=== PATIENT | female | born 1965 | race Caucasian/White ===

== ENCOUNTER 2020-04-05 16:38 | Emergency (ER) | payer MEDICARE, MEDICAID ==
[~2020-04-05] VITALS: Ht 170.2 cm; Wt 162.5 kg
[2020-04-05 17:37] LABS: BASO % 0.4 % (0.0-2.0); EOS # 0.1 (0.0-0.7); EOS % 1.4 % (0-4.0); GRAN # 2.9 (1.4-6.5); GRAN % 59.2 % (42.2-75.2); HEMATOCRIT 38.9 % (37.0-47.0); LYMPH # 1.5 (1.2-3.4); LYMPH % 30.9 % (20.0-51.0); MEAN CELL VOLUME 84 fl (80.0-100.0); MEAN CORPUSCULAR HEMOGLOBIN 26 pg (27.0-31.0); MEAN CORPUSCULAR HGB CONC 31 g/dl (33.0-37.0); MEAN PLATELET VOLUME 10.4 fl (7.4-10.4); MONO # 0.4 (0.1-0.6); MONO % 7.7 % (1.7-9.3); PLATELET COUNT 183 K/mm3 (130-400); RED BLOOD COUNT 4.65 M/mm3 (4.10-5.30); REDCELL DISTRIBUTION WIDTH-CV 16.4 % (11.5-14.5)
[2020-04-05 17:50] LABS: ALBUMIN 4.3 gm/dL (3.5-5.0); BILIRUBIN,TOTAL 0.7 mg/dL (0.0-1.0); CREATININE, serum 0.74 (0.52-1.25); TOTAL PROTEIN 7.5 gm/dL (6.4-8.2)
[2020-04-05 18:47] VITALS: BP 132/64; PULSE 84; TEMP 97.8
== END 2020-04-05 18:48 | disposition home or self-care (01) ==
LOC: COL.ER 16:38
PROVIDERS: Family Medicine
DX: S86.912A Strain of unspecified muscle(s) and tendon(s) at lower leg level, left leg, initial encounter (principal); M17.12 Unilateral primary osteoarthritis, left knee; E66.9 Obesity, unspecified; Z88.0 Allergy status to penicillin; Z88.2 Allergy status to sulfonamides; Z88.6 Allergy status to analgesic agent; Z86.711 Personal history of pulmonary embolism; Z68.43 Body mass index [BMI] 50.0-59.9, adult; X58.XXXA Exposure to other specified factors, initial encounter

== ENCOUNTER 2020-05-25 21:46 | Emergency (ER) | payer MEDICARE, MEDICAID ==
[~2020-05-25] VITALS: Ht 170.2 cm; Wt 155.5 kg
[2020-05-25 22:49] LABS: BASO % 0.4 % (0.0-2.0); EOS # 0.1 (0.0-0.7); EOS % 1.3 % (0-4.0); GRAN # 3.4 (1.4-6.5); GRAN % 63.3 % (42.2-75.2); HEMATOCRIT 39.2 % (37.0-47.0); HEMOGLOBIN 11.7 g/dl (12.5-16.0); LYMPH # 1.4 (1.2-3.4); LYMPH % 25.4 % (20.0-51.0); MEAN CELL VOLUME 84 fl (80.0-100.0); MEAN CORPUSCULAR HEMOGLOBIN 25 pg (27.0-31.0); MEAN CORPUSCULAR HGB CONC 30 g/dl (33.0-37.0); MEAN PLATELET VOLUME 10.5 fl (7.4-10.4); MONO # 0.5 (0.1-0.6); MONO % 9.2 % (1.7-9.3); PLATELET COUNT 209 K/mm3 (130-400); RED BLOOD COUNT 4.69 M/mm3 (4.10-5.30); REDCELL DISTRIBUTION WIDTH-CV 16.6 % (11.5-14.5)
[2020-05-25 22:57] LABS: COLLECTION METHOD CLEAN CATCH
[2020-05-25 23:00] LABS: ALANINE AMINOTRANSFERASE 19 U/L (4-34); ALBUMIN 3.9 gm/dL (3.5-5.0); ALKALINE PHOSPHATASE 73 U/L (50-136); ANION GAP 9 mmol/L (7-16); AST,SGOT 22 U/L (15-37); BILIRUBIN,TOTAL 0.2 mg/dL (0.0-1.0); BLOOD UREA NITROGEN 14 mg/dL (7-17); CALCIUM 8.7 mg/dL (8.4-10.2); CARBON DIOXIDE 23 mmol/L (22-30); CHLORIDE 106 mmol/L (98-107); CREATININE, serum 0.64 (0.52-1.25); GLUCOSE 105 mg/dL (74-106); POTASSIUM 3.9 mmol/L (3.4-5.0); SODIUM 138 mmol/L (137-145); TOTAL PROTEIN 7.3 gm/dL (6.4-8.2)
[2020-05-25 23:05] LABS: ACETAMINOPHEN < 10 ug/mL (10-30); ALCOHOL(ethanol),MEDICAL < 10 mg/dL; SALICYLATE < 1.0 mg/dL
[2020-05-25 23:06] LABS: MUCOUS Present /lpf; PH 5 (5-8); URINE APPEARANCE Hazy; URINE BACTERIA Occasional /hpf; URINE BILIRUBIN Negative (NEGATIVE); URINE BLOOD Negative (NEGATIVE); URINE COLOR Yellow; URINE GLUCOSE Negative (NEGATIVE); URINE KETONE Negative (NEGATIVE); URINE LEUKOCYTE ESTERASE 1+ (NEGATIVE); URINE NITRATE Positive (NEGATIVE); URINE PROTEIN(semi-quant) 1+ (NEGATIVE)
[2020-05-25 23:09] LABS: TRICYCLIC ANTIDEPRESS URINE POSITIVE
[2020-05-26 06:58] VITALS: BP 129/89
[2020-05-26] MEDS ORDERED: MACROBID 1100 MG/CAP PO (10:59)
--- NOTE | 2020-05-26 12:56 | NUR ---
SW called to ER to assist with patient. Nurse informed SW that patient was brought to the ER by daughter due to patient overdosing on medication. Nurse informed SW that patient's daughter Vilma [phone] did not want patient to return to her home due to the patient not being safe and needing continued assistance. Nurse provided that she called [facility] and [facility] sent safetly plan documentation which states that patient is to return to her "home" which is daughter's home for this safety plan. SW called daughter to confirm information and daughter stated that patient was not safe in her home around her children, and that she wants to ensure that her mother does not return to her home due to her mother needing to be safe and needing therapy. SW called [facility] to inform therapist Anastasia [phone] that daughter stated that patient could not return to her home at this time due to not being safe. SW spoke to patient with nurse and patient stated that she just wanted to go home to be with family and her cat. SW and nurse informed patient that daughter felt it was unsafe for her to go back to her home at this time. Patient stated that if she could not go back to her daughte's home "she had nothing to live for" Physician and [facility] staff informed of patient's comment. Daniele stated that she is unsafe to leave facility. [facility] therapist Anastasia spoke to patient. After call with therapist, patient spoke to daughter, patient informed daughter that she wanted to come home, but daugther stated that her mother needed assistance to be safe. [facility] staff therapist Anastasia stated that patient has the option of coming to the stabilization. Patient agreed to go to facilty. Nurse, [facility] therapist Anastasia, and Physician informed of plan. Therapist provided that [facility] transportation will pick patient up as soon as DC paper work is complete. SW informed nurse of [facility] transportation number [phone]. SW attempted to call daughter to inform her of plan, but daughter did not answer. Nothing further.
[2020-05-26 13:30] VITALS: PULSE 85; TEMP 97.6
== END 2020-05-26 13:30 | disposition home or self-care (01) ==
LOC: COL.ER 21:46
PROVIDERS: Nurse Practitioner Primary Care
DX: T42.4X2A Poisoning by benzodiazepines, intentional self-harm, initial encounter (principal); T43.012A Poisoning by tricyclic antidepressants, intentional self-harm, initial encounter; T43.222A Poisoning by selective serotonin reuptake inhibitors, intentional self-harm, initial encounter; F32.9 Major depressive disorder, single episode, unspecified; Z98.84 Bariatric surgery status; Z88.0 Allergy status to penicillin; Z88.2 Allergy status to sulfonamides; Z88.6 Allergy status to analgesic agent

== ENCOUNTER 2020-06-10 23:10 | Emergency (ER) | payer MEDICARE, MEDICAID ==
[~2020-06-10] VITALS: Ht 170.2 cm; Wt 155.5 kg
[~2020-06-10 23:10] MED LIST: MACROBID 1100 MG/CAP PO
[2020-06-10 23:15] VITALS: TEMP 98.2
[2020-06-10 23:35] LABS: BASO % 0.3 % (0.0-2.0); EOS # 0.1 (0.0-0.7); EOS % 1.2 % (0-4.0); GRAN # 5.1 (1.4-6.5); GRAN % 65.1 % (42.2-75.2); HEMATOCRIT 42.5 % (37.0-47.0); HEMOGLOBIN 12.3 g/dl (12.5-16.0); LYMPH # 2.1 (1.2-3.4); LYMPH % 27.1 % (20.0-51.0); MEAN CELL VOLUME 84 fl (80.0-100.0); MEAN CORPUSCULAR HEMOGLOBIN 24 pg (27.0-31.0); MEAN CORPUSCULAR HGB CONC 29 g/dl (33.0-37.0); MEAN PLATELET VOLUME 10.8 fl (7.4-10.4); MONO # 0.5 (0.1-0.6); MONO % 5.8 % (1.7-9.3); PLATELET COUNT 255 K/mm3 (130-400); RED BLOOD COUNT 5.05 M/mm3 (4.10-5.30); REDCELL DISTRIBUTION WIDTH-CV 16.8 % (11.5-14.5)
[2020-06-10 23:45] LABS: ALANINE AMINOTRANSFERASE 18 U/L (4-34); ALBUMIN 4.6 gm/dL (3.5-5.0); ALKALINE PHOSPHATASE 83 U/L (50-136); ANION GAP 10 mmol/L (7-16); AST,SGOT 27 U/L (15-37); BILIRUBIN,TOTAL 0.4 mg/dL (0.0-1.0); BLOOD UREA NITROGEN 10 mg/dL (7-17); CALCIUM 9.4 mg/dL (8.4-10.2); CARBON DIOXIDE 25 mmol/L (22-30); CHLORIDE 104 mmol/L (98-107); CREATININE, serum 0.68 (0.52-1.25); GLUCOSE 93 mg/dL (74-106); LIPASE 81 U/L (23-300); POTASSIUM 4.2 mmol/L (3.4-5.0); SODIUM 139 mmol/L (137-145); TOTAL PROTEIN 8.8 gm/dL (6.4-8.2)
[2020-06-10 23:55] LABS: PROTHROMBIN TIME 11.5 SECONDS (9.7-12.8)
[2020-06-10 23:58] LABS: PARTIAL THROMBOPLASTIN TIME 33.3 SECONDS (26.0-37.0)
[2020-06-11] LABS: D-DIMER < 200.00 ng/mLDDu (200-230); TROPONIN-I < 0.012 ng/mL (0.000-0.035)
[2020-06-11] MEDS ORDERED: BONINE25 MG PO (01:55)
[2020-06-11 01:57] VITALS: BP 131/67; PULSE 84
== END 2020-06-11 02:15 | disposition home or self-care (01) ==
LOC: COL.ER 23:10
PROVIDERS: Emergency Medicine
DX: R07.89 Other chest pain (principal); H81.392 Other peripheral vertigo, left ear; Z88.2 Allergy status to sulfonamides; Z88.0 Allergy status to penicillin; Z88.6 Allergy status to analgesic agent
CPT/HCPCS: J2060

== ENCOUNTER 2022-02-24 22:17 | Emergency (ER) | payer MEDICARE, MEDICAID ==
[~2022-02-24] VITALS: Ht 170.2 cm; Wt 140.1 kg
[~2022-02-24 22:17] MED LIST changes: +BONINE25 MG PO
[2022-02-24 22:24] VITALS: TEMP 98.3
[2022-02-24 23:06] LABS: BASO % 0.5 % (0.0-2.0); EOS # 0.1 K/mm3 (0.0-0.7); EOS % 0.8 % (0.0-4.0); GRAN # 4.3 K/mm3 (1.4-6.5); GRAN % 68.2 % (42.2-75.2); HEMATOCRIT 38.9 % (37.0-47.0); HEMOGLOBIN 11.5 g/dl (12.5-16.0); LYMPH # 1.4 K/mm3 (1.2-3.4); LYMPH % 21.8 % (20.0-51.0); MEAN CELL VOLUME 81 fl (80.0-100.0); MEAN CORPUSCULAR HEMOGLOBIN 24 pg (27-31); MEAN CORPUSCULAR HGB CONC 30 g/dl (33.0-37.0); MEAN PLATELET VOLUME 11.3 fl (7.4-10.4); MONO # 0.5 K/mm3 (0.1-0.6); MONO % 8.4 % (1.7-9.3); PLATELET COUNT 222 K/mm3 (130-400); RED BLOOD COUNT 4.78 M/mm3 (4.10-5.30); REDCELL DISTRIBUTION WIDTH-CV 18.1 % (11.5-14.5)
[2022-02-24 23:37] LABS: ALANINE AMINOTRANSFERASE 18 U/L (0-55); ALBUMIN 3.6 gm/dL (3.5-5.0); ALKALINE PHOSPHATASE 54 U/L (40-150); ANION GAP 12 mmol/L (7-16); AST,SGOT 16 U/L (5-34); BILIRUBIN,TOTAL 0.5 mg/dL (0.2-1.2); BLOOD UREA NITROGEN 7 mg/dL (10-20); CALCIUM 8.7 mg/dL (8.4-10.2); CARBON DIOXIDE 21 mmol/L (22-29); CHLORIDE 107 mmol/L (98-107); CREATININE, serum 0.79 mg/dL (0.57-1.11); GLUCOSE 104 mg/dL (70-99); POTASSIUM 3.7 mmol/L (3.5-4.5); SODIUM 140 mmol/L (136-145); TOTAL PROTEIN 6.7 gm/dL (6.2-8.1)
[2022-02-24 23:49] LABS: TROPONIN-I < 0.010 ng/mL (0.00-0.033)
[2022-02-25 00:08] VITALS: BP 124/87; PULSE 64
== END 2022-02-25 00:24 | disposition home or self-care (01) ==
LOC: COL.ER 22:17
PROVIDERS: Emergency Medicine
DX: R07.89 Other chest pain (principal); R06.02 Shortness of breath; Z28.310 Unvaccinated for COVID-19; Z20.822 Contact with and (suspected) exposure to COVID-19
CPT/HCPCS: J3010

== ENCOUNTER 2023-05-05 14:07 | Observation (INO) | payer MEDICARE, MEDICAID ==
[~2023-05-05] VITALS: Ht 170.2 cm; Wt 125.1 kg
[2023-05-05] MEDS ORDERED: Ondansetron 4 MG/2 ML VIAL IV PRN ×2 (14:45→18:45)
[2023-05-05] MEDS ORDERED: LORazepam 2 MG/ML 1 ML VIAL IV ONE (14:45)
[2023-05-05] MEDS ORDERED: Morphine 4 MG/ML VIAL IV PRN ×2 (14:45→18:45)
[2023-05-05 14:58] LABS: BASO % 0.3 % (0.0-2.0); EOS % 0.7 % (0.0-4.0); GRAN # 3.6 K/mm3 (1.4-6.5); GRAN % 61.9 % (42.2-75.2); HEMATOCRIT 37.9 % (37.0-47.0); HEMOGLOBIN 11.2 g/dl (12.5-16.0); LYMPH # 1.6 K/mm3 (1.2-3.4); LYMPH % 28.3 % (20.0-51.0); MEAN CELL VOLUME 81 fl (80.0-100.0); MEAN CORPUSCULAR HEMOGLOBIN 24 pg (27-31); MEAN CORPUSCULAR HGB CONC 30 g/dl (33.0-37.0); MONO # 0.5 K/mm3 (0.1-0.6); MONO % 8.5 % (1.7-9.3); PLATELET COUNT 235 K/mm3 (130-400); RED BLOOD COUNT 4.66 M/mm3 (4.10-5.30); REDCELL DISTRIBUTION WIDTH-CV 17.9 % (11.5-14.5)
[2023-05-05 15:15] LABS: ALANINE AMINOTRANSFERASE 11 U/L (0-55); ALBUMIN 3.9 gm/dL (3.5-5.0); ALKALINE PHOSPHATASE 58 U/L (40-150); ANION GAP 9 mmol/L (7-16); AST,SGOT 17 U/L (5-34); BILIRUBIN,TOTAL 0.5 mg/dL (0.2-1.2); BLOOD UREA NITROGEN 13 mg/dL (10-20); CALCIUM 9.5 mg/dL (8.4-10.2); CARBON DIOXIDE 22 mmol/L (22-29); CHLORIDE 109 mmol/L (98-107); CREATININE, serum 0.78 mg/dL (0.57-1.11); GLUCOSE 79 mg/dL (70-99); POTASSIUM 4.4 mmol/L (3.5-4.5); SODIUM 140 mmol/L (136-145); TOTAL PROTEIN 7.1 gm/dL (6.2-8.1)
[2023-05-05 15:33] LABS: TROPONIN-I < 0.010 ng/mL (0.00-0.033)
[2023-05-05] MEDS ORDERED: Mag/Al Hydrox/Simeth Susp 30 ML CUP PO ONE (18:00)
[2023-05-05] MEDS ORDERED: LEXAPRO20 MG PO (18:26)
[2023-05-05] MEDS ORDERED: DESYREL 100MG100 MG PO (18:26)
[2023-05-05] MEDS ORDERED: ATARAX 25MG25 MG/TAB PO (18:26)
[2023-05-05] MEDS ORDERED: VRAYLAR3 MG PO (18:26)
[2023-05-05] MEDS ORDERED: fentaNYL 50 MCG/ML 2 ML VIAL IV ONE (18:30)
[2023-05-05] MEDS ORDERED: Albuterol/Ipratropium 3 MG-0.5 MG/3 ML Neb Soln IH PRN (18:45)
[2023-05-05] MEDS ORDERED: Mag/Al Hydrox/Simeth Susp 30 ML CUP PO PRN (18:45)
[2023-05-05] MEDS ORDERED: Heparin 5,000 UNITS/ML 1 ML VIAL IV PRN (18:45)
[2023-05-05] MEDS ORDERED: Heparin 5,000 UNITS/ML 1 ML VIAL IV ONE (18:45)
[2023-05-05] MEDS ORDERED: Acetaminophen 325 MG TAB PO PRN (18:45)
[2023-05-05] MEDS ORDERED: NS 1,000 ML IV ONE (18:45)
[2023-05-05] MEDS ORDERED: Heparin/D5W 250 ML IV SCH (18:45)
[2023-05-05 19:55] LABS: PARTIAL THROMBOPLASTIN TIME 31.3 SECONDS (26.0-37.0)
--- NOTE | 2023-05-05 20:20 | NUR ---
FEMALE PATIENT ARRIVED TO ROOM #318 VIA STRETCHER FROM ER. PATIENT ASSISTED TO BED WITH STAND BY ASSIST. GAIT STEADY. TELEMETRY INTACT. HEPARIN INFUSING INTO RIGHT UPPER ARM WITH NO COMPLICATIONS NOTED. NS INFUSING INTO RIGHT WRIST VIA DIAL-A-PERLA. PATIENT AMBULATED TO BATHROOM AND VOIDED. PATIENT THEN AMBULATED TO BED. INITAL INTERVIEW AND ASSESSMENT COMPLETED AT THIS TIME. PATIENT TOELRATED WELL. PATIENT VERBALIZED UNDERSTANDIND OF BED CONTROLS AND CALL LIGHT. PATIENT C/O CHEST PAIN MID STERNAL. 6.5 ON SCALE OF 0 TO 10. PATIENT VERBALIZED THAT MEDICATION WOULD BE GIVEN. PATIENT DENIES ANY OTHER NEEDS. BED IN LOW POSITION WITH WHEELS LOCKED WITH RIALS UP X2 AND CALL LIGHT WITHIN REACH.
[2023-05-05 20:30] VITALS: BP 109/70; PULSE 60; TEMP 97.5
--- NOTE | 2023-05-05 20:59 | NUR ---
PATIENT SITTING UP IN BED WATCHING TV AND EATING SANDWICH TRAY WITH NO ACUTE DISTRESS NOTED. PATIENT ON ROOM AIR. NS INFUSING INTO RIGHT WRIST AND HEPARIN INFUSING INTO RIGHT UPPER ARM WITH NO COMPLICATIONS NOTED. TUBING CHANGED ON NS INFUSION. MEDICATION ADMINISTRATION COMPLETED AT THIS TIME. PATIENT TOELRATED WELL. ALL NEEDS MET. BED IN LOW POSITION WITH WHEELS LOCKED WITH RAILS UP X2 AND CALL LIGHT WITHIN REACH.
[2023-05-05] MEDS ORDERED: Pravastatin 20 MG TAB PO SCH (21:00)
[2023-05-05] MEDS ORDERED: Sennosides/Docusate 8.6-50 MG TAB PO SCH (21:00)
[2023-05-05 23:38] VITALS: BP 130/77; PULSE 65; TEMP 97.7
[2023-05-06] VITALS (17 sets, daily range): BP systolic 92–130; BP diastolic 62–77; PULSE 54–121; TEMP 97.5–100.4
[2023-05-06] MEDS ORDERED: DESYREL 100MG100 MG PO (00:24)
[2023-05-06] MEDS ORDERED: LEXAPRO20 MG PO (00:26)
[2023-05-06] MEDS ORDERED: Escitalopram 10 MG TAB PO SCH (02:30)
[2023-05-06] MEDS ORDERED: traZODone 100 MG TAB PO SCH (02:30)
--- NOTE | 2023-05-06 06:40 | NUR ---
PT RESTING IN BED. PT IS ON RA. PT IS SR ON TELE. PT IS AXOX3. PT HAS HEPARIN RUNNING. PT IS NPO AND AWAITING CARDIOLOGY CONSULT. PT HAS CALL LIGHT AND INSTURCTED TO CALL WITH ALL NEEDS.
[2023-05-06 07:50] LABS: CALCIUM 8.8 mg/dL (8.4-10.2); CREATININE, serum 0.67 mg/dL (0.57-1.11); POTASSIUM 4.3 mmol/L (3.5-4.5)
[2023-05-06] MEDS ORDERED: Patient's Own Medication Item PO SCH (09:00)
--- NOTE | 2023-05-06 09:53 | NUR ---
Initial visit; Patient thanked Personal Care Worker for looking in on her and offering God's blessings. Patient agreed to let her nurse know if she decides she would like Personal Care Worker to return and pray with her.
[2023-05-06] MEDS ORDERED: NS 1,000 ML IV SCH (10:30)
--- NOTE | 2023-05-06 11:12 | NUR ---
Clothes Drier Repairer met with patient at bedside. Patient alert and oriented x 4, verified demographic information. Patient lives with her daughter Vilma ([phone]) in [place], [place]. Patient reports seeing Dr. Vel Azevedo as her PCP She uses no DME and has no services at home. Patient reports being independent with ADLs and drives herself. Patient denies any discharge needs at this time. Patient did request to complete DPOA paperwork during this stay. Plan is to return home when medically stable. Discharge: Home
[2023-05-06] MEDS ORDERED: Regadenoson 0.08 MG/ML 5 ML SYRINGE IV SCH (11:37)
--- NOTE | 2023-05-06 13:07 | NUR ---
PT BACK FROM [facility]. SPOKE WITH SHA RODRIGUEZ WITH CARDIOLOGY. ORDER RECEIVED FOR DIET.
--- NOTE | 2023-05-06 14:08 | NUR ---
[employer] met with patient to complete DPOA document. Copy placed on patient's chart. Original and copies provided to patient.
--- NOTE | 2023-05-06 15:36 | NUR ---
LAB UNABLE TO DRAW XA. THIS RN ATTEMPTED WITH NO SUCCESS. SHA RODRIGUEZ NOTIFIED AND ASKED REGARDING [facility] SCAN RESULTS. HE STATES HE WILL LET KNOW.
--- NOTE | 2023-05-06 17:08 | NUR ---
1545-TERRITORY SALES MANAGER MEDICAL ATTEMPTED TO DRAW BLOOD FOR HEP XA, UNSUCCESSFUL. 1605-JEANINE NEUMANN FROM ER CAME UP TO DRAW LAB FOR XA. BLOOD SENT TO LAB.
--- NOTE | 2023-05-06 18:30 | NUR ---
[facility] SCAN RESULTS NEGATIVE. NOTIFIED. ORDERS TO DC HEPARIN GTT.
--- NOTE | 2023-05-06 18:40 | NUR ---
PATIENT RESTING IN BED WITH TV ON WITH NO ACUTE DISTRESS NOTED WITH NS INFUSING INTO RIGHT WRIST WITH NO COMPLICATIONS NOTED. INT TO RIGHT UPPER ARM INTACT WITH NO COMPLICATIONS NOTED. PATIENT ON ROOM AIR. TELEMETRY INTACT. PATIENT DENIES ANY NEEDS AT THIS TIME. PATIENT CARE ASSUMED FROM [facility]. BED IN LOW POSITION WITH WHEELS LOCKED WITH RAILS UP X3 AND CALL LIGHT WITHIN REACH.
[2023-05-06] MEDS ORDERED: PRAVACHOL 40MG40 MG PO (18:44)
[2023-05-06] MEDS ORDERED: ASPIRIN E.C. 8181 MG PO (18:45)
[2023-05-06] MEDS ORDERED: PLAVIX 75MG TAB75 MG PO (18:46)
[2023-05-06] MEDS ORDERED: LOPRESSOR 225 MG/TAB PO (18:47)
[2023-05-06] MEDS ORDERED: PROTONIX 40MG T40 MG PO (18:48)
--- NOTE | 2023-05-06 18:54 | NUR ---
DISCHARGE ORDERS RECIEVED.
--- NOTE | 2023-05-06 19:15 | NUR ---
PATIENT RESTING IN BED WATCHING TV WITH NO ACUTE DISTRESS NOTED. PATIENT ON ROOM AIR. NS INFUSING IN TO RIGHT WRIST WITH NO COMPLICATIONS NTOED. INT TO RIGHT UPPER ARM INTACT WITH NO COMPLICATIONS NOTED. PATIENT INFORMED OF DISCHARE. PATIENT CALLED DAUGHTER. TELEMETRY REMOVED AFTER ICU NOTIFIED. PATIENT REQUESTED IVS BE TAKEN OUT. INT TO RIGHT WRIST AND RIGHT UPPER ARM REMOVED WITH CATHETER INTACT AND PRESSURE DRESSING APPLIED. PATIENT GOT DRESSED. DISCHARGE PAPERWORK COMPLETED. PATIENT VERBALIZED UNDERSTANDING OF MEDICATION TO RETIREMENT SALES CONSULTANT AND START TAKING ALONG WITH NEED FOR FOLLOW UP APPOINTMENTS WITH PCP AND CARDIOLOGY. PATIENT AGREED TO CALL ONCE DAUGHTER AT HOSPITAL. PATIENT DENIES ANY OTHER NEEDS AT THIS TIME. BED IN LOW POSITION WITH WHEELS LOCKED WITH RAILS UP X2 AND CALL LIGHT WITHIN REACH.
--- NOTE | 2023-05-06 19:32 | NUR ---
PATIENT DAUGHTER PRESENT AND PATIENT AMBULATED OUT TO CAR IN STABLE CONDITION. PATIENT REFUSED WHEELCHAIR RIDE OUT TO CAR.
== END 2023-05-06 19:32 | disposition home or self-care (01) ==
LOC: COL.ER 14:07 → MEDICAL 18:33
PROVIDERS: Personal Emergency Response Attendant; Physician Assistant; ADMIT Internal Medicine
DX: R07.2 Precordial pain (principal); E66.01 Morbid (severe) obesity due to excess calories; F32.A Depression, unspecified; F20.9 Schizophrenia, unspecified; I08.1 Rheumatic disorders of both mitral and tricuspid valves; J90 Pleural effusion, not elsewhere classified; Z98.84 Bariatric surgery status; Z79.899 Other long term (current) drug therapy
CPT/HCPCS: A9500-JZ; G0378; J1644; J2060; J2270; J2405; J2785; J3010; J7030

== ENCOUNTER → 2023-05-13 | Outpatient (CLI) | payer MEDICARE, MEDICAID ==
[~2023-05-13] MED LIST changes: +ASPIRIN E.C. 8181 MG PO; +ATARAX 25MG25 MG/TAB PO; +DESYREL 100MG100 MG PO; +LEXAPRO20 MG PO; +LOPRESSOR 225 MG/TAB PO; +PLAVIX 75MG TAB75 MG PO; +PRAVACHOL 40MG40 MG PO; +PROTONIX 40MG T40 MG PO; +VRAYLAR3 MG PO
== END ==
LOC: MC.RAD 13:43
DX: Z12.31 Encounter for screening mammogram for malignant neoplasm of breast (principal)

== ENCOUNTER 2023-08-28 16:27 | Emergency (ER) | payer MEDICARE, MEDICAID ==
[~2023-08-28] VITALS: Ht 170.2 cm; Wt 116.8 kg
[2023-08-28 16:31] VITALS: TEMP 98
[2023-08-28] MEDS ORDERED: Pantoprazole 40 MG in NS 10 ML IV ONE (17:00)
[2023-08-28] MEDS ORDERED: Ondansetron 4 MG/2 ML VIAL IV ONE (17:00)
[2023-08-28] MEDS ORDERED: NS 1,000 ML IV ONE (17:00)
[2023-08-28 17:07] LABS: BASO % 0.3 % (0.0-2.0); EOS # 0.1 K/mm3 (0.0-0.7); EOS % 1.6 % (0.0-4.0); GRAN % 55.4 % (42.2-75.2); HEMOGLOBIN 10.4 g/dl (12.5-16.0); LYMPH # 1.2 K/mm3 (1.2-3.4); LYMPH % 33.3 % (20.0-51.0); MEAN CELL VOLUME 75 fl (80.0-100.0); MEAN CORPUSCULAR HEMOGLOBIN 22 pg (27-31); MEAN CORPUSCULAR HGB CONC 30 g/dl (33.0-37.0); MEAN PLATELET VOLUME 10.8 fl (7.4-10.4); MONO # 0.3 K/mm3 (0.1-0.6); MONO % 8.9 % (1.7-9.3); PLATELET COUNT 166 K/mm3 (130-400); RED BLOOD COUNT 4.64 M/mm3 (4.10-5.30); REDCELL DISTRIBUTION WIDTH-CV 19.7 % (11.5-14.5)
[2023-08-28 17:11] LABS: HEMATOCRIT 34.9 % (37.0-47.0)
[2023-08-28 17:22] LABS: ALBUMIN 3.7 g/dL (3.5-5.0); BILIRUBIN,TOTAL 0.6 mg/dL (0.2-1.2); C-REACTIVE PROTEIN 0.35 mg/dL (0.00-0.50); CALCIUM 9.6 mg/dL (8.4-10.2); CREATININE, serum 0.71 mg/dL (0.57-1.11); POTASSIUM 4.1 mEq/L (3.5-4.5); TOTAL PROTEIN 6.2 g/dl (6.2-8.1)
[2023-08-28] MEDS ORDERED: Iohexol 300 - 100 ML VIAL IV ONE (18:10)
[2023-08-28] MEDS ORDERED: NS 100 ML IV ONE (18:11)
[2023-08-28] MEDS ORDERED: PROTONIX 40MG T40 MG PO (19:08)
[2023-08-28 19:14] VITALS: BP 127/87; PULSE 60
== END 2023-08-28 19:36 | disposition home or self-care (01) ==
LOC: COL.ER 16:27
PROVIDERS: Emergency Medicine
DX: K92.0 Hematemesis (principal); E66.01 Morbid (severe) obesity due to excess calories; Z87.891 Personal history of nicotine dependence; Z79.02 Long term (current) use of antithrombotics/antiplatelets
CPT/HCPCS: J2405; J2470; J7030; Q9967

== ENCOUNTER 2023-09-16 17:01 | Emergency (ER) | payer MEDICARE, MEDICAID ==
[~2023-09-16] VITALS: Ht 170.2 cm; Wt 115.9 kg
[2023-09-16 17:10] VITALS: TEMP 96.9
[2023-09-16] MEDS ORDERED: NS 1,000 ML IV ONE (17:45)
[2023-09-16 17:57] LABS: ALBUMIN 4.1 g/dL (3.5-5.0); BILIRUBIN,TOTAL 0.6 mg/dL (0.2-1.2); CALCIUM 10.6 mg/dL (8.4-10.2); CREATININE, serum 0.83 mg/dL (0.57-1.11); POTASSIUM 4.3 mEq/L (3.5-4.5); TOTAL PROTEIN 7.2 g/dl (6.2-8.1)
[2023-09-16 17:59] LABS: BASO % 0.4 % (0.0-2.0); EOS # 0.1 K/mm3 (0.0-0.7); EOS % 1.9 % (0.0-4.0); GRAN # 2.5 K/mm3 (1.4-6.5); GRAN % 52.7 % (42.2-75.2); HEMATOCRIT 39.4 % (37.0-47.0); HEMOGLOBIN 11.9 g/dl (12.5-16.0); LYMPH # 1.6 K/mm3 (1.2-3.4); LYMPH % 34.3 % (20.0-51.0); MEAN CELL VOLUME 77 fl (80.0-100.0); MEAN CORPUSCULAR HEMOGLOBIN 23 pg (27-31); MEAN CORPUSCULAR HGB CONC 30 g/dl (33.0-37.0); MEAN PLATELET VOLUME 11.1 fl (7.4-10.4); MONO # 0.5 K/mm3 (0.1-0.6); MONO % 10.5 % (1.7-9.3); PLATELET COUNT 201 K/mm3 (130-400); REDCELL DISTRIBUTION WIDTH-CV 18.5 % (11.5-14.5)
[2023-09-16 18:02] LABS: TROPONIN-I 0.011 ng/mL (0.00-0.033)
[2023-09-16] MEDS ORDERED: Morphine 4 MG/ML VIAL IV ONE ×2 (18:15→20:15)
[2023-09-16] MEDS ORDERED: LORazepam 2 MG/ML 1 ML VIAL IV ONE ×2 (19:00→23:45)
[2023-09-17 02:36] VITALS: BP 124/71; PULSE 87
== END 2023-09-17 02:36 | disposition home or self-care (01) ==
LOC: COL.ER 17:01
PROVIDERS: Nurse Practitioner
DX: R07.89 Other chest pain (principal); E66.01 Morbid (severe) obesity due to excess calories; Z87.891 Personal history of nicotine dependence
CPT/HCPCS: J2060; J2270; J7030

== ENCOUNTER 2023-09-17 22:06 | Emergency (ER) | payer MEDICARE, MEDICAID ==
[~2023-09-17] VITALS: Ht 170.2 cm; Wt 113.2 kg
[~2023-09-17 22:06] MED LIST changes: +Cocaine 4% (40 MG/ML) Nasal Soln 4 ML Bottle NS ONE
[2023-09-17 22:12] VITALS: TEMP 98.4
[2023-09-18 01:03] VITALS: BP 158/99; PULSE 64
== END 2023-09-18 01:12 | disposition home or self-care (01) ==
LOC: COL.ER 22:06
DX: R04.0 Epistaxis (principal); Z79.02 Long term (current) use of antithrombotics/antiplatelets

== ENCOUNTER 2023-09-18 15:41 | Emergency (ER) | payer MEDICARE, MEDICAID ==
[~2023-09-18] VITALS: Ht 170.2 cm; Wt 112.7 kg
[~2023-09-18 15:41] MED LIST changes: -Cocaine 4% (40 MG/ML) Nasal Soln 4 ML Bottle NS ONE
[2023-09-18 15:47] VITALS: TEMP 98.6
[2023-09-18] MEDS ORDERED: Tranexamic Acid 1,000 MG/10 ML VIAL TOP ONE (16:00)
[2023-09-18] MEDS ORDERED: Lidocaine 2% w EPI (1:100,000) 20 ML Multi-Dose VIAL IJ ONE (19:38)
[2023-09-18] MEDS ORDERED: Tranexamic Acid 1,000 MG/10 ML VIAL NS ONE (19:45)
[2023-09-18 20:12] VITALS: BP 143/90; PULSE 68
== END 2023-09-18 20:10 | disposition home or self-care (01) ==
LOC: COL.ER 15:41
DX: R04.0 Epistaxis (principal)

== ENCOUNTER 2023-12-06 14:53 | Emergency (ER) | payer MEDICARE, MEDICAID ==
[~2023-12-06] VITALS: Ht 170.2 cm; Wt 112.2 kg
[2023-12-06 18:52] LABS: BASO % 0.3 % (0.0-2.0); EOS # 0.1 K/mm3 (0.0-0.7); EOS % 1.3 % (0.0-4.0); GRAN # 3.6 K/mm3 (1.4-6.5); GRAN % 58.7 % (42.2-75.2); HEMOGLOBIN 10.7 g/dl (12.5-16.0); LYMPH # 1.9 K/mm3 (1.2-3.4); LYMPH % 32.1 % (20.0-51.0); MEAN CELL VOLUME 72 fl (80.0-100.0); MEAN CORPUSCULAR HEMOGLOBIN 21 pg (27-31); MEAN CORPUSCULAR HGB CONC 30 g/dl (33.0-37.0); MEAN PLATELET VOLUME 10.6 fl (7.4-10.4); MONO # 0.4 K/mm3 (0.1-0.6); MONO % 7.1 % (1.7-9.3); PLATELET COUNT 222 K/mm3 (130-400); REDCELL DISTRIBUTION WIDTH-CV 16.2 % (11.5-14.5)
[2023-12-06 18:54] LABS: HEMATOCRIT 36.2 % (37.0-47.0)
[2023-12-06 19:03] LABS: INR 1.1 (0.8-3.0); PROTHROMBIN TIME 12.3 SECONDS (9.7-12.8)
[2023-12-06 19:06] LABS: PARTIAL THROMBOPLASTIN TIME 33.1 SECONDS (26.0-37.0)
[2023-12-06 19:08] LABS: D-DIMER < 200.00 ng/mLDDu (200-230)
[2023-12-06 19:14] LABS: ALANINE AMINOTRANSFERASE 53 U/L (0-55); ALBUMIN 4.1 g/dL (3.5-5.0); ALKALINE PHOSPHATASE 57 U/L (40-150); ANION GAP 11 mmol/L (7-16); AST,SGOT 42 U/L (5-34); BILIRUBIN,TOTAL 0.5 mg/dL (0.2-1.2); BLOOD UREA NITROGEN 9 mg/dL (10-20); CALCIUM 10.7 mg/dL (8.4-10.2); CHLORIDE 103 mEq/L (98-107); CREATININE, serum 0.85 mg/dL (0.57-1.11); GLUCOSE 93 mg/dL (70-99); LIPASE 20 U/L (8-78); POTASSIUM 4.4 mEq/L (3.5-4.5); SODIUM 140 mEq/L (136-145); TOTAL PROTEIN 7.5 g/dl (6.2-8.1)
[2023-12-06 19:24] LABS: TROPONIN-I < 0.010 ng/mL (0.00-0.033)
[2023-12-06] MEDS ORDERED: Morphine 4 MG/ML VIAL IV ONE ×2 (19:30→22:15)
[2023-12-06] MEDS ORDERED: Iohexol 350 - 100 ML VIAL IV ONE (22:09)
[2023-12-06] MEDS ORDERED: NS 100 ML IV ONE (22:09)
[2023-12-06] MEDS ORDERED: Acetaminophen 500 MG TAB PO ONE (22:15)
[2023-12-06] MEDS ORDERED: Sucralfate Susp 1 GM/10 ML UD PO ONE (22:15)
[2023-12-07] MEDS ORDERED: CARAFATE S1 GM/10 ML PO (00:10)
[2023-12-07 00:36] VITALS: TEMP 98.5
[2023-12-07 00:41] VITALS: BP 102/77; PULSE 68
== END 2023-12-07 00:40 | disposition home or self-care (01) ==
LOC: COL.ER 14:53
PROVIDERS: Emergency Medicine
DX: K20.90 Esophagitis, unspecified without bleeding (principal); R07.9 Chest pain, unspecified
CPT/HCPCS: J2270; Q9967